=== PATIENT | male | born 1970 | race Hispanic/Latino ===

== ENCOUNTER 2021-11-07 20:43 | Emergency (ER) | payer OTHER, SELFPAY ==
[2021-11-07 21:08] LABS: #Basophils 0.1 thou/uL (0.0-0.2); #Eosinphils 0.3 thou/uL (0.0-0.7); #Lymphocytes 2.5 thou/uL (1.20-3.40); #Monocytes 0.5 thou/uL (0.11-0.59); #Neutrophils 3.2 thou/uL (1.40-6.50); %Basophils 1.2 % (0.0-1.0); %Neutrophils 47.8 % (42.0-75.0); Hemoglobin 15.6 g/dL (14.0-18.0); Mean Corpuscular HGB CONC 34.8 g/dL (32.0-36.0); Mean Corpuscular Hemoglobin 29.7 pg (27.0-31.0); Mean Corpuscular Volume 85.4 fL (78.0-98.0); Mean Platelet Volume 10.2 fL (7.4-10.4); Platelet Count 203 thou/uL (130-400); Red Blood Cell (RBC) Count 5.25 mill/uL (4.70-6.10); White Blood Cell (WBC) Count 6.7 thou/uL (4.8-10.8)
[2021-11-07 21:20] LABS: Prothrombin Time 13.1 sec (12.0-14.7)
[2021-11-07 21:29] LABS: ALT (SGPT) 38 U/L (8-55); AST (SGOT) 28 U/L (5-34); Acetaminophen Less than 10.0 mcg/mL (10.0-30.0); Albumin 4.2 g/dL (3.5-5.0); Alcohol 235 mg/dL (Less than 10); Alkaline Phosphatase 114 U/L (40-110); Anion Gap 19 mmol/L (10-20); BUN (Urea Nitrogen) 7 mg/dL (8.4-25.7); Bilirubin, Total 0.6 mg/dL (0.2-1.2); CK (CPK) 155 U/L (30-200); Calc. Creatinine Clearance 0 mL/min (70-130); Carbon Dioxide 21 mmol/L (22-29); Chloride 99 mmol/L (98-107); Estimated GFR 99; Globulin 2.9 g/dL (2.4-3.5); Glucose 301 mg/dL (70-105); Lipase 43 U/L (8-78); Potassium 3.6 mmol/L (3.5-5.1); Protein, Total 7.1 g/dL (6.0-8.3); Salicylate Less than 8.0 mg/dL (15.0-30.0); Sodium 135 mmol/L (136-145)
== END 2021-11-08 08:20 | disposition home or self-care (01) ==
LOC: MADERS 20:43
DX: S09.90XA Unspecified injury of head, initial encounter (principal); S40.012A Contusion of left shoulder, initial encounter; S00.01XA Abrasion of scalp, initial encounter; F10.129 Alcohol abuse with intoxication, unspecified; V43.52XA Car driver injured in collision with other type car in traffic accident, initial encounter; Y92.411 Interstate highway as the place of occurrence of the external cause; Y90.7 Blood alcohol level of 200-239 mg/100 ml
CPT/HCPCS: 70450; 71045; 72125; 72170; 80053; 80307; 82550; 83690; 85025; 85610; 85730; G0390

== ENCOUNTER 2023-06-24 16:42 | Emergency (ER) | payer SELFPAY ==
[~2023-06-24 16:42] MED LIST: Iopamidol 370 76% 100 ML VIAL ONE
[2023-06-24] MEDS ORDERED: Orphenadrine Citrate 60 MG/2 ML VIAL ONE (17:10)
[2023-06-24] MEDS ORDERED: Ketorolac Tromethamine 30 MG (1 mL) VIAL ONE (17:10)
[2023-06-24 17:38] LABS: #Basophils 0.1 thou/uL (0.0-0.2); #Eosinphils 0.3 thou/uL (0.0-0.7); #Lymphocytes 1.6 thou/uL (1.20-3.40); #Monocytes 0.4 thou/uL (0.11-0.59); #Neutrophils 3.9 thou/uL (1.40-6.50); %Eosinophils 4.4 % (0.0-10.0); %Lymphocytes 25.4 % (21.0-51.0); %Neutrophils 62.2 % (42.0-75.0); Hematocrit 46.6 % (42.0-52.0); Hemoglobin 15.8 g/dL (14.0-18.0); Mean Corpuscular HGB CONC 33.8 g/dL (32.0-36.0); Mean Corpuscular Hemoglobin 30.4 pg (27.0-31.0); Mean Platelet Volume 9.8 fL (7.4-10.4); Platelet Count 232 10x3/uL (130-400); RBC Distribution Width 11.2 % (11.5-14.5); Red Blood Cell (RBC) Count 5.18 mill/uL (4.70-6.10); White Blood Cell (WBC) Count 6.3 10x3/uL (4.8-10.8)
[2023-06-24 17:40] LABS: Prothrombin Time 12.8 sec (12.0-14.7)
[2023-06-24 17:41] LABS: PTT 26.5 sec (22.9-36.1)
[2023-06-24 17:46] LABS: ALT (SGPT) 13 U/L (8-55); AST (SGOT) 12 U/L (5-34); Albumin 4.5 g/dL (3.5-5.0); Alkaline Phosphatase 100 U/L (40-110); Anion Gap 16 mmol/L (10-20); BUN (Urea Nitrogen) 13 mg/dL (8.4-25.7); Bilirubin, Total 0.6 mg/dL (0.2-1.2); Calc. Creatinine Clearance 0 mL/min (70-130); Calcium 9.3 mg/dL (7.8-10.44); Carbon Dioxide 21 mmol/L (22-29); Chloride 103 mmol/L (98-107); Estimated GFR 103; Globulin 3.1 g/dL (2.4-3.5); Glucose 214 mg/dL (70-105); Potassium 4.2 mmol/L (3.5-5.1); Protein, Total 7.6 g/dL (6.0-8.3); Sodium 136 mmol/L (136-145)
[2023-06-24 17:49] LABS: Troponin I Less than 0.010 ng/mL (< 0.028)
[2023-06-24] MEDS ORDERED: Boostrix 0.5 ML (Tdap) VIAL (>/=7 yrs of age) ONE (18:38)
[2023-06-24] MEDS ORDERED: Bacitracin 1 PK ONE (18:42)
== END 2023-06-24 19:04 | disposition home or self-care (01) ==
LOC: MADERS 16:42
DX: S39.012A Strain of muscle, fascia and tendon of lower back, initial encounter (principal); S53.402A Unspecified sprain of left elbow, initial encounter; E11.9 Type 2 diabetes mellitus without complications; E78.5 Hyperlipidemia, unspecified; Z79.84 Long term (current) use of oral hypoglycemic drugs; V89.2XXA Person injured in unspecified motor-vehicle accident, traffic, initial encounter
CPT/HCPCS: 70450; 71260; 72125; 74177; 80053; 84484; 85025; 85610; 85730; 90471; 90715; 96372; 96374; J1885; J2360; Q9967